=== PATIENT | female | born 1980 | race African-American/Black ===

== ENCOUNTER 2017-02-16 09:10 | Emergency (ER) | payer OTHER, MEDICAID ==
[~2017-02-16] VITALS: Ht 162.6 cm; Wt 80.0 kg
[2017-02-16 09:12] VITALS: BP 153/82
[2017-02-16] MEDS ORDERED: IBUPROFEN 600MG TABLET PO ONE (10:45)
== END 2017-02-16 11:15 | disposition home or self-care (01) ==
LOC: ER 09:14
DX: S43.401A Unspecified sprain of right shoulder joint, initial encounter (principal); G43.909 Migraine, unspecified, not intractable, without status migrainosus; V49.49XA Driver injured in collision with other motor vehicles in traffic accident, initial encounter; Y93.89 Activity, other specified; Y99.9 Unspecified external cause status; Y92.89 Other specified places as the place of occurrence of the external cause
CPT/HCPCS: 99283; A4565